=== PATIENT | female | born 1970 | race Caucasian/White ===

== ENCOUNTER 2022-09-07 20:36 | Emergency (ER) | payer MEDICAID, OTHER ==
[~2022-09-07] VITALS: Ht 172.7 cm; Wt 99.8 kg
[2022-09-07 21:03] VITALS: BP 155/85
--- NOTE | 2022-09-07 22:02 | NUR ---
PT ESCORTED TO BED #11. DR. BENITEZ BEDSIDE
[2022-09-07] MEDS ORDERED: VANCOMYCIN 1,000 MG in DEXTROSE 5% 250 ML IV ONE (22:05)
--- NOTE | 2022-09-07 22:18 | NUR ---
20G IV CATH PLACED IN L AC. LABS OBTAINED
[2022-09-07] MEDS ORDERED: VANCOMYCIN 1,000 MG VIAL ONE (22:21)
[2022-09-08] MEDS ORDERED: CEPH-588 PO (00:47)
[2022-09-08] MEDS ORDERED: SULF-59 PO (00:47)
[2022-09-08] MEDS ORDERED: [UNRECOGNIZED DRUG - CODE] TP (00:47)
--- NOTE | 2022-09-08 00:50 | NUR ---
Patient discharged with v/s stable. Written and verbal after care instructions given and explained. Patient alert, oriented and verbalized understanding of instructions. Ambulatory with steady gait. All questions addressed prior to discharge. ID band removed. Patient advised to follow up with PMD. Rx of BACTRIM, KEFLEX, AND CHLORHEXIDINE given. Patient educated on indication of medication including possible reaction and side effects. Opportunity to ask questions provided and answered.
[2022-09-08 01:00] VITALS: BP 130/63
== END 2022-09-08 00:50 | disposition home or self-care (01) ==
LOC: MED 20:36
DX: A49.02 Methicillin resistant Staphylococcus aureus infection, unspecified site (principal); L02.416 Cutaneous abscess of left lower limb; Z98.890 Other specified postprocedural states
CPT/HCPCS: 36415; 87040; 96365; 99284; J3370

== ENCOUNTER 2022-11-12 14:59 | Emergency (ER) | payer MEDICAID ==
[~2022-11-12] VITALS: Ht 172.7 cm; Wt 99.8 kg
[~2022-11-12 14:59] MED LIST: CEPH-588 PO; SULF-59 PO; [UNRECOGNIZED DRUG - CODE] TP
[2022-11-12 15:31] VITALS: BP 130/93; PULSE 97; RESP 20; TEMP 98; O2SAT 99
--- NOTE | 2022-11-12 15:53 | NUR ---
PATIENT PRESENTS TO ED WITH SPIDER BITE IN MIDDLE OF BACK . PT STATES " HAD ONE IN THE PAST ON LEG THAT TURNED INTO MRSA I DONT WANT THAT TO HAPPEN AGAIN" . DENIES N/V/D; SKIN IS PINK/WARM/DRY; AAOX4 WITH EVEN AND STEADY GAIT; LUNGS CLEAR BL; HR EVEN AND REGULAR; PT DENIES ANY FEVER, CP, SOB, OR COUGH AT THIS TIME; PATIENT STATES PAIN OF 0/10 AT THIS TIME; VSS; PATIENT POSITIONED FOR COMFORT; HOB ELEVATED; BEDRAILS UP X2; BED DOWN. ER MD MADE AWARE OF PT STATUS.CALL LIGHT WITHIN REACH
[2022-11-12] MEDS ORDERED: SULF-59 PO (15:54)
[2022-11-12] MEDS ORDERED: CEPH-588 PO (15:54)
[2022-11-12 15:59] VITALS: BP 130/93; PULSE 97; RESP 20; TEMP 98; O2SAT 99
--- NOTE | 2022-11-12 15:59 | NUR ---
Patient discharged with v/s stable. Written and verbal after care instructions given and explained. Patient alert, oriented and verbalized understanding of instructions. Ambulatory with steady gait. All questions addressed prior to discharge. ID band removed. Patient advised to follow up with PMD. Rx of KEFLEX AND BACTRIM given. Patient educated on indication of medication including possible reaction and side effects. Opportunity to ask questions provided and answered.
== END 2022-11-12 15:59 | disposition home or self-care (01) ==
LOC: MED 14:59
DX: L03.312 Cellulitis of back [any part except buttock and flank] (principal); Z79.899 Other long term (current) drug therapy; Z79.2 Long term (current) use of antibiotics
CPT/HCPCS: 99283